=== PATIENT | female | born 1975 | race Caucasian/White ===

== ENCOUNTER 2017-03-10 17:24 | Emergency (ER) | payer MEDICAID, OTHER ==
[~2017-03-10] VITALS: Ht 152.4 cm; Wt 81.5 kg
[2017-03-10 17:52] VITALS: Ht 152.4 cm; Wt 81.5 kg
[2017-03-10] MEDS ORDERED: DICLOFENAC SODIUM 37.5 MG/ML VIAL IV STA (18:18)
[2017-03-10 19:20] LABS: ADD SCAN DIFF NO
[2017-03-10 19:21] LABS: BASOPHILS % 0.3 % (0.0-2.0); EOSINOPHILS # 0.2 10^3/ul (0.0-0.5); EOSINOPHILS % 2.5 % (0.0-7.0); HEMATOCRIT 39.8 % (37.0-47.0); LYMPHOCYTES # 2.6 10^3/ul (0.8-2.9); LYMPHOCYTES % 35.2 % (15.0-51.0); MEAN CORPUSCULAR HEMOGLOBIN 29.5 pg (29.0-33.0); MEAN CORPUSCULAR HGB CONC 32.7 g/dl (32.0-37.0); MEAN CORPUSCULAR VOLUME 90.5 fl (82.0-101.0); MEAN PLATELET VOLUME 9.7 fl (7.4-10.4); MONOCYTE # 0.6 10^3/ul (0.3-0.9); MONOCYTES % 8.8 % (0.0-11.0); NEUTROPHIL # 3.9 10^3/ul (1.6-7.5); NEUTROPHILS % 52.9 % (39.0-77.0); PLATELET COUNT 317 10^3/UL (140-415); RED CELL DISTRIBUTION WIDTH 12.7 % (11.5-14.5); WHITE BLOOD COUNT 7.3 10^3/ul (4.8-10.8)
[2017-03-10 19:33] LABS: ALBUMIN 4.4 g/dl (3.3-4.9); POTASSIUM 3.7 mmol/L (3.5-5.1)
[2017-03-10 19:36] LABS: ALBUMIN/GLOBULIN RATIO 1.41; BILIRUBIN,INDIRECT 0.2 mg/dl (0-1.1); BILIRUBIN,TOTAL 0.2 mg/dl (0.2-1.3); CALCIUM 8.8 mg/dl (8.4-10.2); CREATININE 0.55 mg/dl (0.44-1.00); TOTAL PROTEIN 7.5 g/dl (6.1-8.1)
--- NOTE | 2017-03-10 19:45 | RADRPT ---
PROCEDURE: XR Left Foot. CLINICAL INDICATION: Trauma. Pain. TECHNIQUE: AP, lateral and oblique views of the left foot was obtained. The images were reviewed on a PACS workstation. COMPARISON: None. FINDINGS: There are no fractures. Joint relationships are maintained. Bone mineralization is within normal l imits. Mall plantar calcaneal bone spur is present. Soft tissues are unremarkable. IMPRESSION: No acute abnormality. RPTAT: HMVK .Qamar Velez MD, MD Date Time Electronically viewed and signed by .Qamar Velez MD, on 03/10/2017 19:44 .K/
[2017-03-10] MEDS ORDERED: IBUP800T25 PO (20:17)
[2017-03-10] MEDS ORDERED: HYDR-902 PO (20:17)
[2017-03-10] MEDS ORDERED: PRED20TA PO (20:17)
--- NOTE | 2017-03-10 20:21 | ERD ---
ER Documentation Chief Complaint Date/Time DATE: 03/10/17 TIME: 20:18 Chief Complaint C/O GEN. BODY PAIN X8 DAYS, DENIES COUGH N/V OR FEVER HPI This a 41-year-old female complains of 8 days of myalgias. She is complaining of pain to her right and left arm her right and left leg as well as her low back. She says she feels very achy but she is not having any fevers no headaches shortness of breath no focal neurological complaints patient says she is not overactive nor does lots of lifting and straining at work. She says the symptoms are worse at night. No rash. She also complains that she stubbed her left toe 3 days ago. No swelling or bruising. No respiratory symptoms ROS All systems reviewed and are negative except as per history of present illness. Medications Home Meds Active Scripts Prednisone* (Prednisone*) 20 Mg Tab, 60 MG PO DAILY for 5 Days, TAB Prov:CLAUDETTE BOWERSTOLOS A. DO 03/10/17 Hydrocodone/Acetaminophen ([place] 10-325 Tablet) 1 Each Tablet, 1 TAB PO Q6H Y for PAIN, #20 TAB Prov:CLAUDETTE BOWERSTOLOS A. DO 03/10/17 Ibuprofen* (Motrin*) 800 Mg Tab, 800 MG PO Q6H Y for PAIN AND OR ELEVATED TEMP, #30 TAB Prov:ERIOSCLAUDETTESTOLOS A. DO 03/10/17 Allergies Allergies: Coded Allergies: No Known Drug Allergies (Verified Allergy, Mild, 10/29/14) PMhx/Soc History of Surgery: No Anesthesia Reaction: No Hx Neurological Disorder: No Hx Respiratory Disorders: No Hx Cardiac Disorders: No Hx Psychiatric Problems: No Hx Miscellaneous Medical Probl: No Hx Alcohol Use: No Hx Substance Use: No Hx Tobacco Use: No FmHx Family History: No coronary disease Physical Exam Vitals Vital Signs Date Time Temp Pulse Resp B/P Pulse Ox O2 Delivery O2 Flow Rate FiO2 03/10/17 17:52 97.0 83 20 129/60 98 Physical Exam Const: Well-developed, well-nourished Head: Atraumatic, normocephalic Eyes: Normal Conjunctiva, PERRLA, EOMI, normal sclera, no nystagmus ENT: Normal External Ears, Nose and Mouth, moist mucus membranes. Neck: Full range of motion. No meningismus, no lymphadenopathy. Resp: Clear to auscultation bilaterally, no wheezing, rhonchi, rales Cardio: Regular rate and rhythm, no murmurs, S1 S2 present Abd: Soft, non tender x 4, non distended. Normal bowel sounds, no guarding or rebound, no pulsitile abdominal masses or bruits Skin: No petechiae or rashes, no ecchymosis , no maculopapular rash Back: No midline or flank tenderness Ext: No cyanosis, or edema, FROM x 4, normal inspection, neurovascularly intact x 4, there is tenderness to the left fifth pinky toe with a bruising Neur: Awake and alert, STR 5/5 x 4, sensation intact x 4, no focal findings, cerebellum intact Psych: Normal Mood and Affect Result Diagram: 03/10/17189903/10/171899 Results 24 hrs Laboratory Tests Test 03/10/17 19:00 White Blood Count 7.310^3/ul Red Blood Count 4.4010^6/ul Hemoglobin 13.0g/dl Hematocrit 39.8% Mean Corpuscular Volume 90.5fl Mean Corpuscular Hemoglobin 29.5pg Mean Corpuscular Hemoglobin Concent 32.7g/dl Red Cell Distribution Width 12.7% Platelet Count 34673^3/UL Mean Platelet Volume 9.7fl Neutrophils % 52.9% Lymphocytes % 35.2% Monocytes % 8.8% Eosinophils % 2.5% Basophils % 0.3% Nucleated Red Blood Cells % 0.0/100WBC Neutrophils # 3.910^3/ul Lymphocytes # 2.610^3/ul Monocytes # 0.610^3/ul Eosinophils # 0.210^3/ul Basophils # 0.010^3/ul Nucleated Red Blood Cells # 0.010^3/ul Sodium Level 139mmol/L Potassium Level 3.7mmol/L Chloride Level 102mmol/L Carbon Dioxide Level 25mmol/L Anion Gap 16 Blood Urea Nitrogen 17mg/dl Creatinine 0.55mg/dl Glucose Level 95mg/dl Calcium Level 8.8mg/dl Total Bilirubin 0.2mg/dl Direct Bilirubin 0.00mg/dl Indirect Bilirubin 0.2mg/dl Aspartate Amino Transf (AST/SGOT) 27IU/L Alanine Aminotransferase (ALT/SGPT) 38IU/L Alkaline Phosphatase 68IU/L Total Protein 7.5g/dl Albumin 4.4g/dl Globulin 3.10g/dl Albumin/Globulin Ratio 1.41 Current Medications Medications (Trade) Dose Ordered Sig/Rachel Route PRN Reason Start Time Stop Time Status Last Admin Dose Admin Diclofenac Sodium (Dyloject) 37.5 mg ONCE STAT IV 03/10/17 18:18 03/10/17 18:19 DC 03/10/17 18:59 Procedures/MDM Blood work is unremarkable. X-ray of the foot is negative PROCEDURE: XR Left Foot. CLINICAL INDICATION: Trauma. Pain. TECHNIQUE: AP, lateral and oblique views of the left foot was obtained. The images were reviewed on a PACS workstation. COMPARISON: None. FINDINGS: There are no fractures. Joint relationships are maintained. Bone mineralization is within normal limits. Mall plantar calcaneal bone spur is present. Soft tissues are unremarkable. IMPRESSION: No acute abnormality. RPTAT: HMVK .Qamar Velez MD, MD Date Time Electronically viewed and signed by .Qamar Velez MD, on 03/10/2017 19:44 .K/ CC: OBDULIA BOWER DO Patient may have a viral illness or may have some type of autoimmune process going on. We will treat with some steroids and anti-inflammatories and see if she gets better. If not she needs a follow-up with her primary for extensive workup Departure Diagnosis: Primary Impression: Myalgia Additional Impression: Sprain of toe, fifth, left Encounter type: initial encounter Qualified Code: S93.505A - Sprain of toe, fifth, left, initial encounter Condition: Stable Patient Instructions: Myalgias, Sprain Toe OBDULIA BOWER DO Mar 10, 2017 20:21
[2017-03-10 20:40] VITALS: BP 120/72; PULSE 64; RESP 16; TEMP 98
== END 2017-03-10 20:40 | disposition home or self-care (01) ==
LOC: FTE 17:24
DX: S93.505A Unspecified sprain of left lesser toe(s), initial encounter (principal); X50.0XXA Overexertion from strenuous movement or load, initial encounter; Y92.89 Other specified places as the place of occurrence of the external cause
CPT/HCPCS: 73630; 80053; 85025; Z7610; 36415; 96374

== ENCOUNTER 2017-07-28 18:53 | Emergency (ER) | payer OTHER ==
[~2017-07-28] VITALS: Ht 152.4 cm; Wt 82.5 kg
[~2017-07-28 18:53] MED LIST: HYDR-902 PO; IBUP800T25 PO; PRED20TA PO
[2017-07-28 19:09] VITALS: Ht 152.4 cm; Wt 82.5 kg
--- NOTE | 2017-07-28 19:39 | ERD ---
ER Documentation Chief Complaint Date/Time DATE: 07/28/17 TIME: 19:38 Chief Complaint headache and lower back pain since yesterday. HPI 41-year-old female presents to emergency department for complaints of headache, bilateral flank pain or back pain dysuria hematuria that started yesterday. Patient complains of pain upon urination, back pain, sharp pain, 6/10 scale, burning urination, accompanied with headache, throbbing pain, 4/10 scale, denies any nausea vomiting. Patient denies any fever or chills. Patient denies any diarrhea. Patient denies any trauma in the back. ROS All systems reviewed and are negative except as per history of present illness. Medications Home Meds Active Scripts Prednisone* (Prednisone*) 20 Mg Tab, 60 MG PO DAILY for 5 Days, TAB Prov:LEKKOS,CLAUDETTESTOLOS A. DO 03/10/17 Hydrocodone/Acetaminophen ([place] 10-325 Tablet) 1 Each Tablet, 1 TAB PO Q6H Y for PAIN, #20 TAB Prov:LEKKOS,APOSTOLOS A. DO 03/10/17 Ibuprofen* (Motrin*) 800 Mg Tab, 800 MG PO Q6H Y for PAIN AND OR ELEVATED TEMP, #30 TAB Prov:LEKKOS,APOSTOLOS A. DO 03/10/17 Allergies Allergies: Coded Allergies: No Known Drug Allergies (Verified Allergy, Mild, 10/29/14) PMhx/Soc Medical and Surgical Hx: pt denies Medical Hx, pt denies Surgical Hx History of Surgery: No Anesthesia Reaction: No Hx Neurological Disorder: No Hx Respiratory Disorders: No Hx Cardiac Disorders: No Hx Psychiatric Problems: No Hx Miscellaneous Medical Probl: No Hx Alcohol Use: No Hx Substance Use: No Hx Tobacco Use: No Smoking Status: Never smoker FmHx Family History: No coronary disease, No diabetes, No other Physical Exam Vitals Vital Signs Date Time Temp Pulse Resp B/P Pulse Ox O2 Delivery O2 Flow Rate FiO2 07/28/17 19:09 98.1 91 20 118/57 97 Physical Exam GENERAL: The patient is well developed and appropriate for usual state of health, in no apparent distress. CHEST: Clear to auscultation bilaterally. There are no rales, wheezes or rhonchi. HEART: Regular rate and rhythm. No murmurs, clicks, rubs or gallops. No S3 or S4. ABDOMEN: Soft, nontender and nondistended. Good bowel sounds. No rebound or guarding. No gross peritonitis. No gross organomegaly or masses. No Knight sign or McBurney point tenderness. BACK: No midline or flank tenderness. EXTREMITIES: Equal pulses bilaterally. There is no peripheral clubbing, cyanosis or edema. No focal swelling or erythema. Full range of motion. Grossly neurovascularly intact. NEURO: Alert and oriented. Cranial nerves 2-12 intact. Motor strength in all 4 extremities with 5/5 strength. Sensation grossly intact. Normal speech and gait. SKIN: There is no apparent rash or petechia. The skin is warm and dry. HEMATOLOGIC AND LYMPHATIC: There is no evidence of excessive bruising or lymphedema. No gross cervical, axillary, or inguinal lymphadenopathy. Result Diagram: 07/28/17210607/28/172106 Results 24 hrs Laboratory Tests Test 07/28/17 20:00 07/28/17 21:07 Urine Color YELLOW Urine Clarity TURBID Urine pH 5.0 Urine Specific [place] 1.021 Urine Ketones NEGATIVEmg/dL Urine Nitrite NEGATIVEmg/dL Urine Bilirubin NEGATIVEmg/dL Urine Urobilinogen NEGATIVEmg/dL Urine Leukocyte Esterase NEGATIVELeu/ul Urine Microscopic RBC 3/HPF Urine Microscopic WBC 1/HPF Urine Squamous Epithelial Cells FEW/HPF Urine Uric Acid Crystals MODERATE/HPF Urine Hemoglobin NEGATIVEmg/dL Urine Glucose NEGATIVEmg/dL Urine Total Protein NEGATIVEmg/dl White Blood Count 7.010^3/ul Red Blood Count 4.2810^6/ul Hemoglobin 12.7g/dl Hematocrit 38.8% Mean Corpuscular Volume 90.7fl Mean Corpuscular Hemoglobin 29.7pg Mean Corpuscular Hemoglobin Concent 32.7g/dl Red Cell Distribution Width 12.5% Platelet Count 83473^3/UL Mean Platelet Volume 9.6fl Neutrophils % 51.0% Lymphocytes % 37.2% Monocytes % 9.2% Eosinophils % 2.0% Basophils % 0.3% Nucleated Red Blood Cells % 0.0/100WBC Neutrophils # (Manual) 3.610^3/ul Lymphocytes # 2.610^3/ul Monocytes # 0.710^3/ul Eosinophils # 0.110^3/ul Basophils # 0.010^3/ul Nucleated Red Blood Cells # 0.010^3/ul Sodium Level 138mmol/L Potassium Level 3.7mmol/L Chloride Level 106mmol/L Carbon Dioxide Level 25mmol/L Anion Gap 11 Blood Urea Nitrogen 15mg/dl Creatinine 0.65mg/dl Glucose Level 93mg/dl Calcium Level 9.2mg/dl Total Bilirubin 0.2mg/dl Direct Bilirubin 0.00mg/dl Indirect Bilirubin 0.2mg/dl Aspartate Amino Transf (AST/SGOT) 23IU/L Alanine Aminotransferase (ALT/SGPT) 35IU/L Alkaline Phosphatase 58IU/L Total Protein 6.7g/dl Albumin 3.9g/dl Globulin 2.80g/dl Albumin/Globulin Ratio 1.39 Current Medications Medications (Trade) Dose Ordered Sig/Rachel Route PRN Reason Start Time Stop Time Status Last Admin Dose Admin Acetaminophen/ Hydrocodone Bitart ([place] (5/325)) 1 tab ONCE ONCE PO 07/28/17 20:00 07/28/17 20:01 DC 07/28/17 19:53 Patient was given medication for pain here in emergency department, after treatment, patient verbalized feeling much better. Patient's pain is improved. PROCEDURE: Noncontrast CT Head. CLINICAL INDICATION: Headache TECHNIQUE: Noncontrast CT of the head was obtained. The administered radiation dose was CTDI vol = 43.95 mGy, DLP = 720.23 mGy-cm. One or more of the following dose reduction techniques were used: Automated exposure control, Adjustment of the mA and/or kV according to patient size, or Use of iterative reconstruction technique. COMPARISON: There are no similar studies submitted for comparison. FINDINGS: There is no acute intracranial hemorrhage, midline shift, or mass effect. The cerebral helm-white matter differentiation appears preserved. No abnormal extra- axial collection is identified. The cerebral sulci and ventricles are within normal limits in size and configuration for patient's age. The cerebral attenuation is within normal limits. The brainstem and cerebellum are grossly unremarkable. The basal cisterns are preserved. The visualized paranasal sinuses and mastoid air cells are clear. No acute fracture or suspicious osseous lesion is identified. IMPRESSION: No evidence of an acute intracranial process. Unremarkable noncontrast CT brain. RPTAT: AA Physician Tony Date Time Electronically viewed and signed by Physician Tony on 07/28/2017 21: 35 RC/ PROCEDURE: CT Lumbar Spine without contrast. CLINICAL INDICATION: Lumbar spine pain. TECHNIQUE: The study was performed on a multislice multidetector CT scanner. Spiral axial 1 mm images were obtained through the lumbar spine without intravenous contrast. 1 or more of the following dose reduction techniques were utilized: Automated exposure control, adjustment of the mA and/or kV according to patient's size, iterative reconstruction technique. Coronal and sagittal reformations were obtained. The images were reviewed on a PACS workstation. RADIATION DOSE: CTDIvol: 26.0 mGy DLP: 739.6 mGy-cm COMPARISON: No prior studies are available for comparison. FINDINGS: The alignment of the lumbar spine is normal. No vertebral body subluxation is seen. The intervertebral discs are normal in height. The vertebral body heights and marrow density are normal. The paraspinal soft tissues unremarkable. No significant paraspinal soft tissue swelling. L1-L2: The posterior margin of the disc is normal in appearance. No significant disc bulge or protrusion is evident. The central canal and neural foramina are adequately patent. L2-L3: The posterior margin of the disc is normal in appearance. No significant disc bulge or protrusion is evident. The central canal and neural foramina are adequately patent. L3-L4: The posterior margin of the disc is normal in appearance. No significant disc bulge or protrusion is evident. The central canal and neural foramina are adequately patent. L4-L5: There is a 1-2 mm annular disc bulge without significant indentation on the ventral thecal sac. The thecal sac and lateral recesses are patent. There is mild bilateral facet spondylosis. The neural foramina are patent. L5-S1: There is a 1-2 mm annular disc bulge without significant indentation on the ventral thecal sac. The thecal sac and lateral recesses are patent. There is mild bilateral facet spondylosis. The neural foramina are patent. IMPRESSION: 1. No acute abnormality of the lumbar spine. No evidence of fracture. 2. Minimal spondylosis at L4-5 and L5-S1 without significant narrowing of the lumbar thecal sac, lateral recesses or neural foramina. RPTAT: HGAS .Isaiah Khan MD, MD Date Time Electronically viewed and signed by .Isaiah Khan MD, MD on 07/28/2017 21: 47 .S/ Procedures/MDM Medical decision making: Patient's back pain nonspecific at this time, can be musculoskeletal pain, can be from the degenerative disc disease noted in the lumbar spine. No symptoms of any neurovascular compromise. No symptoms of pyelonephritis. Patient does complain of some dysuria but there is no urinary tract infection, patient will still be treated early infection. blood work does not show any leukocytosis, no bandemia, low suspicion for any sepsis at this time. Patient headache nonspecific at this time, possible migraine headache, CT scan of the brain does not show any neurologic emergencies at this time. Neurologic exam is normal. Patient was advised to follow-up with primary care doctor in 1-2 days for reevaluation of symptoms, see neurologist specialist as necessary for headache. Patient was advised to return to emergency department for any symptoms. Rx: [place], Flexeril, Keflex, Fioricet, Disposition:. Stable Departure Diagnosis: Primary Impression: Back pain Back pain location: low back pain Chronicity: acute Back pain laterality: bilateral Sciatica presence: without sciatica Qualified Code: M54.5 - Acute bilateral low back pain without sciatica Additional Impressions: Headache Headache type: unspecified Headache chronicity pattern: acute headache Intractability: not intractable Qualified Code: R51 - Acute nonintractable headache, unspecified headache type Dysuria Condition: Stable Patient Instructions: Back Pain (Acute Or Chronic), Dysuria, Self-Care for Headaches JOLLY ALVES NP Jul 28, 2017 19:39
[2017-07-28] MEDS ORDERED: HYDROCODONE/APAP (5/325) TAB PO ONE (20:00)
[2017-07-28 20:24] LABS: ADD UMIC YES; UR ASCORBIC ACID 20 mg/dL (NEGATIVE); UR BILIRUBIN (Dip) NEGATIVE (NEGATIVE); UR BLOOD (Dip) NEGATIVE (NEGATIVE); UR CLARITY TURBID (CLEAR); UR COLOR YELLOW (YELLOW); UR GLUCOSE (Dip) NEGATIVE (NEGATIVE); UR KETONES (Dip) NEGATIVE (NEGATIVE); UR LEUKOCYTE ESTERASE (Dip) NEGATIVE Leu/ul (NEGATIVE); UR NITRITE (Dip) NEGATIVE (NEGATIVE); UR RBC 3 /HPF (0-5); UR SPECIFIC GRAVITY (Dip) 1.021 (1.003-1.030); UR SQUAMOUS EPITHELIAL CELL FEW /HPF (FEW); UR TOTAL PROTEIN (Dip) NEGATIVE (NEGATIVE); UR URIC ACID CRYSTAL MODERATE /HPF (NONE SEEN); UR UROBILINOGEN (Dip) NEGATIVE (NEGATIVE)
--- NOTE | 2017-07-28 21:36 | RADRPT ---
PROCEDURE: Noncontrast CT Head. CLINICAL INDICATION: Headache TECHNIQUE: Noncontrast CT of the head was obtained. The administered radiation dose was CTDI vol = 43.95 mGy, DLP = 720.23 mGy-cm. One or more of the following dose reduction techniques were used: Au tomated exposure control, Adjustment of the mA and/or kV according to patient size, or Use of iterat kolby reconstruction technique. COMPARISON: There are no similar studies submitted for comparison. FINDINGS: There is no acute intracranial hemorrhage, midline shift, or mass effect. The cerebral helm-white ma tter differentiation appears preserved. No abnormal extra-axial collection is identified. The cerebral sulci and ventricles are within normal limits in size and configuration for patient's a ge. The cerebral attenuation is within normal limits. The brainstem and cerebellum are grossly unremarkable. The basal cisterns are preserved. The visualized paranasal sinuses and mastoid air cells are clear. No acute fracture or suspicious osseous lesion is identified. IMPRESSION: No evidence of an acute intracranial process. Unremarkable noncontrast CT brain. RPTAT: AA Physician Tony Date Time Electronically viewed and signed by Physician Tony on 07/28/2017 21:35 RC/
[2017-07-28 21:38] LABS: BASOPHILS % 0.3 % (0.0-2.0); EOSINOPHILS # 0.1 10^3/ul (0.0-0.5); HEMATOCRIT 38.8 % (37.0-47.0); HEMOGLOBIN 12.7 g/dl (12.0-16.0); LYMPHOCYTES # 2.6 10^3/ul (0.8-2.9); LYMPHOCYTES % 37.2 % (15.0-51.0); MEAN CORPUSCULAR HEMOGLOBIN 29.7 pg (29.0-33.0); MEAN CORPUSCULAR HGB CONC 32.7 g/dl (32.0-37.0); MEAN CORPUSCULAR VOLUME 90.7 fl (82.0-101.0); MEAN PLATELET VOLUME 9.6 fl (7.4-10.4); MONOCYTE # 0.7 10^3/ul (0.3-0.9); MONOCYTES % 9.2 % (0.0-11.0); PLATELET COUNT 293 10^3/UL (140-415); RED BLOOD COUNT 4.28 10^6/ul (4.20-5.40); RED CELL DISTRIBUTION WIDTH 12.5 % (11.5-14.5)
--- NOTE | 2017-07-28 21:48 | RADRPT ---
PROCEDURE: CT Lumbar Spine without contrast. CLINICAL INDICATION: Lumbar spine pain. TECHNIQUE: The study was performed on a multislice multidetector CT scanner. Spiral axial 1 mm im ages were obtained through the lumbar spine without intravenous contrast. 1 or more of the following dose reduction techniques were utilized: Automated exposure control, adjustment of the mA and/or k V according to patient's size, iterative reconstruction technique. Coronal and sagittal reformation s were obtained. The images were reviewed on a PACS workstation. RADIATION DOSE: CTDIvol: 26.0 mGyDLP: 739.6 mGy-cm COMPARISON: No prior studies are available for comparison. FINDINGS: The alignment of the lumbar spine is normal. No vertebral body subluxation is seen. The interverte bral discs are normal in height. The vertebral body heights and marrow density are normal. The par aspinal soft tissues unremarkable. No significant paraspinal soft tissue swelling. L1-L2: The posterior margin of the disc is normal in appearance. No significant disc bulge or prot rusion is evident. The central canal and neural foramina are adequately patent. L2-L3: The posterior margin of the disc is normal in appearance. No significant disc bulge or prot rusion is evident. The central canal and neural foramina are adequately patent. L3-L4: The posterior margin of the disc is normal in appearance. No significant disc bulge or prot rusion is evident. The central canal and neural foramina are adequately patent. L4-L5: There is a 1-2 mm annular disc bulge without significant indentation on the ventral thecal s ac. The thecal sac and lateral recesses are patent. There is mild bilateral facet spondylosis. Th e neural foramina are patent. L5-S1: There is a 1-2 mm annular disc bulge without significant indentation on the ventral thecal s ac. The thecal sac and lateral recesses are patent. There is mild bilateral facet spondylosis. Th e neural foramina are patent. IMPRESSION: 1. No acute abnormality of the lumbar spine. No evidence of fracture. 2. Minimal spondylosis at L4-5 and L5-S1 without significant narrowing of the lumbar thecal sac, la teral recesses or neural foramina. RPTAT: HGAS .Isaiah Khan MD, MD Date Time Electronically viewed and signed by .Isaiah Khan MD, on 07/28/2017 21:47 .S/
[2017-07-28 22:01] LABS: ALBUMIN 3.9 g/dl (3.3-4.9); ALBUMIN/GLOBULIN RATIO 1.39; BILIRUBIN,INDIRECT 0.2 mg/dl (0-1.1); BILIRUBIN,TOTAL 0.2 mg/dl (0.2-1.3); CALCIUM 9.2 mg/dl (8.4-10.2); CREATININE 0.65 mg/dl (0.44-1.00); POTASSIUM 3.7 mmol/L (3.5-5.1); TOTAL PROTEIN 6.7 g/dl (6.1-8.1)
[2017-07-28] MEDS ORDERED: CEPH-443 PO (22:28)
[2017-07-28] MEDS ORDERED: HYDR-906 PO (22:28)
[2017-07-28] MEDS ORDERED: PHEN-538 PO (22:28)
[2017-07-28] MEDS ORDERED: CYCL-319 PO (22:28)
== END 2017-07-28 22:41 | disposition home or self-care (01) ==
LOC: FTE 18:53
DX: M54.5 Low back pain (principal); R30.0 Dysuria
CPT/HCPCS: 70450; 72131; 80053; 81001; 85025; Z7502; Z7610

== ENCOUNTER 2017-09-06 13:41 | Emergency (ER) | payer OTHER ==
[~2017-09-06] VITALS: Ht 162.6 cm; Wt 78.0 kg
[~2017-09-06 13:41] MED LIST changes: +CEPH-443 PO; +CYCL-319 PO; +HYDR-906 PO; +PHEN-538 PO
[2017-09-06 13:51] VITALS: Ht 162.6 cm; Wt 78.0 kg
[2017-09-06] MEDS ORDERED: HYDROmorphONE 0.5 MG/0.5 ML SYG IV STA (14:13)
[2017-09-06] MEDS ORDERED: ONDANSETRON 4 MG INJ IV STA (14:13)
[2017-09-06] MEDS ORDERED: SOD CHLORIDE 0.9% 1,000 ML IV STA (14:13)
[2017-09-06 14:23] LABS: BASOPHILS % 0.4 % (0.0-2.0); EOSINOPHILS # 0.2 10^3/ul (0.0-0.5); EOSINOPHILS % 1.8 % (0.0-7.0); HEMATOCRIT 41.4 % (37.0-47.0); HEMOGLOBIN 14.1 g/dl (12.0-16.0); LYMPHOCYTES # 2.7 10^3/ul (0.8-2.9); MEAN CORPUSCULAR HEMOGLOBIN 30.1 pg (29.0-33.0); MEAN CORPUSCULAR HGB CONC 34.1 g/dl (32.0-37.0); MEAN CORPUSCULAR VOLUME 88.5 fl (82.0-101.0); MEAN PLATELET VOLUME 9.6 fl (7.4-10.4); MONOCYTE # 0.5 10^3/ul (0.3-0.9); NEUTROPHIL # 5.5 10^3/ul (1.6-7.5); NEUTROPHILS % 61.6 % (39.0-77.0); PLATELET COUNT 320 10^3/UL (140-415); RED BLOOD COUNT 4.68 10^6/ul (4.20-5.40); WHITE BLOOD COUNT 8.9 10^3/ul (4.8-10.8)
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
[2017-09-06] MEDS ORDERED: IODIXANOL LOCM 100 ML BTL ONE (14:34)
[2017-09-06] MEDS ORDERED: SOD CHLORIDE 0.9% 100 ML ONE (14:34)
[2017-09-06 14:45] LABS: ALBUMIN 4.2 g/dl (3.3-4.9); ALBUMIN/GLOBULIN RATIO 1.23; BILIRUBIN,INDIRECT 0.2 mg/dl (0-1.1); BILIRUBIN,TOTAL 0.2 mg/dl (0.2-1.3); CALCIUM 9.6 mg/dl (8.4-10.2); CREATININE 0.69 mg/dl (0.44-1.00); POTASSIUM 3.8 mmol/L (3.5-5.1); TOTAL PROTEIN 7.6 g/dl (6.1-8.1)
--- NOTE | 2017-09-06 14:46 | RADRPT ---
PROCEDURE: XR Chest. CLINICAL INDICATION: Abdominal pain. TECHNIQUE: Single frontal view. COMPARISON: None. FINDINGS: The lungs are clear. The heart size is normal. There is no pleural effusion. There is no pneumothorax. IMPRESSION: 1. Normal chest radiograph. RPTAT: QQ .Robert Carrillo MD, Date Time Electronically viewed and signed by .Robert Carrillo MD, on 09/06/2017 14:45 .R/
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
[2017-09-06] MEDS ORDERED: DICY10CA60 PO (15:25)
[2017-09-06] MEDS ORDERED: ONDA4TAB14 PO (15:25)
[2017-09-06 15:26] VITALS: TEMP 98.4
[2017-09-06 16:16] VITALS: BP 118/73; PULSE 88; RESP 18
== END 2017-09-06 16:17 | disposition home or self-care (01) ==
LOC: E/R 13:41
DX: R10.84 Generalized abdominal pain (principal)
CPT/HCPCS: 36415; 71010; 74177; 80053; 83690; 84703; 85025; 93005; 96374; 96375; J2405; J7030; Q9967; Z7502; Z7610

== ENCOUNTER 2018-02-14 19:10 | Emergency (ER) | END 2018-02-14 21:50 | disposition home or self-care (01) ==

== ENCOUNTER 2018-04-07 16:31 | Emergency (ER) | END 2018-04-07 17:38 | disposition home or self-care (01) ==

== ENCOUNTER 2018-07-03 22:00 | Emergency (ER) | END 2018-07-03 23:03 | disposition home or self-care (01) ==

== ENCOUNTER 2018-07-12 11:36 | Emergency (ER) | END 2018-07-12 12:45 | disposition home or self-care (01) ==

== ENCOUNTER → 2018-09-23 | Emergency (ER) | END | disposition home or self-care (01) ==

== ENCOUNTER 2019-02-02 21:11 | Emergency (ER) | payer SELFPAY ==
[~2019-02-02] VITALS: Ht 152.4 cm; Wt 73.1 kg
[~2019-02-02 21:11] MED LIST changes: +ACET325T33 PO; +ACET500C5 PO; +AMOX1TAB10 PO; +AMOX1TAB9 PO; +BENZ-6 PO; +CETI1TAB6 PO; -CYCL-319 PO; +CYCL10TA7 PO; +DICY10CA40 PO; +FAMO-96 PO; +FLUT9.9S NASAL; +HYDR-3980 PO; +HYDR-4011 PO; -HYDR-902 PO; -HYDR-906 PO; +IBUP-1542 PO; -IBUP800T25 PO; +IBUP800T48 PO; +OFLO5DRO7 BOTH EARS; +ONDA4TAB14 PO
[2019-02-02 21:33] VITALS: BP 103/59; PULSE 92; RESP 18; Ht 152.4 cm; Wt 73.1 kg
== END 2019-02-02 23:10 | disposition left against medical advice (07) ==
LOC: FTE 21:11
DX: Z53.21 Procedure and treatment not carried out due to patient leaving prior to being seen by health care provider (principal)

== ENCOUNTER 2019-05-11 16:31 | Emergency (ER) | payer OTHER ==
[~2019-05-11] VITALS: Ht 160 cm; Wt 75.5 kg
[2019-05-11 16:33] VITALS: Ht 160 cm; Wt 75.5 kg
[2019-05-11] MEDS ORDERED: KETOROLAC 30 MG INJ IM STA (20:40)
[2019-05-11] MEDS ORDERED: NAPR-985 PO (20:46)
--- NOTE | 2019-05-11 20:49 | ERD ---
ER Documentation Chief Complaint Chief Complaint headache x 2 days HPI 43-year-old female with no reported past medical surgical history presents with complaint of headache over the past 2 days. Patient has headache as a global headache that is intermittent. She denies any prior history of headaches or migraines. Intensity of headache has stayed about the same per patient. Took Tylenol which only helped with headaches somewhat. She otherwise denies dizziness, blurry vision, ear or sinus pain, chest pain, shortness of breath, dyspnea, nausea, vomiting, or recent fall trauma, upper extremity weakness or numbness, slurred speech. Time of examination patient toxic appearing answering all questions appropriately. ROS All systems reviewed and are negative except as per history of present illness. Medications Home Meds Active Scripts Tramadol HCl (Tramadol HCl) 50 Mg Tablet, 50 MG PO Q6 PRN for PAIN, #20 TAB Prov:YUMIKO ANG PA-C 05/11/19 Naproxen* (Naprosyn*) 500 Mg Tablet, 500 MG PO BID PRN for PAIN AND/OR INFLAMMATION, #30 TAB Prov:YUMIKO ANG PA-C 05/11/19 Famotidine* (Pepcid*) 20 Mg Tablet, 20 MG PO BID for 14 Days, TAB Prov:MARIO DAWSON MD 09/23/18 Cetirizine/Pseudoephedrine (Zyrtec-D) 5-120 Mg Tab.er.12h, 1 TAB PO Q12, #20 TAB Prov:LISSY LIN PA-C 07/12/18 Fluticasone Propionate (Flonase Allergy Relief) 9.9 Ml [place].susp, 1 SPRAY NASAL BID for 28 Days, #1 BOTTLE TO EACH NOSTRIL Prov:LISSY LIN PA-C 07/12/18 Amoxicillin/Potassium Clav (Amox-Clav 500-125 mg Tablet) 500-125 mg Tab, 1 TAB PO BID for 12 Days, TAB Prov:LISSY LIN PA-C 07/12/18 Acetaminophen* (Tylenol*) 325 Mg Tablet, 2 TAB PO Q6 PRN for PAIN AND OR ELEVATED TEMP, #30 TAB Prov:LISSY LIN PA-C 07/12/18 Ibuprofen* (Motrin*) 600 Mg Tab, 600 MG PO Q6, #30 TAB Prov:STEPHEN DOBSONC 07/03/18 Acetaminophen* (Tylophen*) 500 Mg Capsule, 1 CAP PO Q6H PRN for PAIN AND OR ELEVATED TEMP, #20 CAP Prov:STEPHEN DOBSONC 07/03/18 Amoxicillin/Potassium Clav (Amox-Clav 875-125 mg Tablet) 875-125 mg Tab, 1 TAB PO BID for 7 Days, #14 TAB Prov:STEPHEN DOBSONC 07/03/18 Ofloxacin Otic (Ofloxacin Otic) 5 Ml Drops, 5 DROP BOTH EARS DAILY for 7 Days, #1 BOTTLE Prov:YANNA GALVAN PA-C 04/07/18 Acetaminophen* (Tylophen*) 500 Mg Capsule, 1 CAP PO Q6H PRN for PAIN AND OR ELEVATED TEMP, #20 CAP Prov:YANNA GALVAN-C 04/07/18 Amoxicillin/Potassium Clav (Amox-Clav 875-125 mg Tablet) 875-125 mg Tab, 1 TAB PO BID for 7 Days, #14 TAB Prov:YANNA GALVANC 04/07/18 Benzonatate* (Tessalon Perle*) 100 Mg Capsule, 100 MG PO Q8H PRN for COUGH, #20 CAP Prov:YANNA GALVAN-C 04/07/18 Ibuprofen* (Motrin*) 800 Mg Tab, 800 MG PO Q6H PRN for PAIN AND OR ELEVATED TEMP, #30 TAB Prov:OBDULIA BOWER DO 02/14/18 Prednisone* (Prednisone*) 20 Mg Tab, 60 MG PO DAILY for 5 Days, TAB Prov:OBDULIA BOWER DO 02/14/18 Hydrocodone/Acetaminophen ([place] 10-325 Tablet) 1 Each Tablet, 1 TAB PO Q6H PRN for PAIN, #20 TAB Prov:OBDULIA BOWER DO 02/14/18 Ondansetron (Ondansetron Odt) 4 Mg Tab.rapdis, 4 MG PO Q6H PRN for NAUSEA AND/OR VOMITING, #30 TAB Prov:GIANCARLO MORALES MD 09/06/17 Dicyclomine HCl (Dicyclomine HCl) 10 Mg Capsule, 10 MG PO QID PRN for abdominal cramping, #20 CAP Prov:GIANCARLO MORALES MD 09/06/17 Phenazopyridine Hcl* (Pyridium*) 200 Mg Tab, 200 MG PO TID PRN for URINARY PAIN, #6 TAB Prov:JOLLY ALVES NP 07/28/17 Cephalexin* (Keflex*) 500 Mg Capsule, 500 MG PO QID for 10 Days, CAP Prov:JOLLY ALVES NP 07/28/17 Cyclobenzaprine Hcl* (Cyclobenzaprine Hcl*) 10 Mg Tablet, 10 MG PO TID, #15 TAB Prov:JOLLY ALVES SENIOR VISUAL DESIGNER 07/28/17 Hydrocodone/Acetaminophen ([place] 5-325 Tablet) 1 Each Tablet, 1 TAB PO Q6H PRN for SEVERE PAIN LEVEL 7-10, #20 TAB Prov:JOLLY ALVES NP 07/28/17 Prednisone* (Prednisone*) 20 Mg Tab, 60 MG PO DAILY for 5 Days, TAB Prov:OBDULIA BOWER DO 03/10/17 Hydrocodone/Acetaminophen ([place] 10-325 Tablet) 1 Each Tablet, 1 TAB PO Q6H PRN for PAIN, #20 TAB Prov:ERIOSCLAUDETTESTOLOS AAguila DO 03/10/17 Ibuprofen* (Motrin*) 800 Mg Tab, 800 MG PO Q6H PRN for PAIN AND OR ELEVATED TEMP, #30 TAB Prov:CLAUDETTE BOWERSTOLOS AAguila DO 03/10/17 Allergies Allergies: Coded Allergies: No Known Allergy (Unverified , 02/14/18) PMhx/Soc Medical and Surgical Hx: pt denies Medical Hx, pt denies Surgical Hx History of Surgery: No Anesthesia Reaction: No Hx Neurological Disorder: No Hx Respiratory Disorders: No Hx Cardiac Disorders: No Hx Psychiatric Problems: No Hx Miscellaneous Medical Probl: No Hx Alcohol Use: No Hx Substance Use: No Hx Tobacco Use: No Smoking Status: Never smoker FmHx Family History: No diabetes, No coronary disease, No other Physical Exam Vitals Vital Signs Date Temp Pulse Resp B/P (MAP) Pulse Ox O2 O2 Flow FiO2 Time Delivery Rate 05/11/19 70 18 118/55 100 Room Air 21:25 (76) 05/11/19 98.1 78 18 126/61 97 16:33 (82) Physical Exam Const: No acute distress Head: Atraumatic Eyes: Normal Conjunctiva ENT: Normal External Ears, Nose and Mouth. No tenderness on palpation of sinuses Neck: Full range of motion. No meningismus. Resp: Clear to auscultation bilaterally Cardio: Regular rate and rhythm, no murmurs Abd: Soft, non tender, non distended. Normal bowel sounds Skin: No petechiae or rashes Back: No midline or flank tenderness Ext: No cyanosis, or edema, lateral upper extremities 5 out of 5 strength throughout, SI LT throughout upper extremity bilaterally Neur: Awake and alert Psych: Normal Mood and Affect Results 24 hrs Current Medications Medications Dose Sig/Rachel Start Time Status Last (Trade) Ordered Route PRN Stop Time Admin Dose Reason Admin 10 mg ONCE ONCE 05/11/19 DC 05/11/19 Dexamethasone IM 21:00 20:50 (Decadron) 05/11/19 21:01 Ketorolac 30 mg ONCE STAT 05/11/19 DC 05/11/19 Tromethamine IM 20:40 20:50 (Toradol) 05/11/19 20:41 Procedures/MDM This patient presents with a headache most consistent with nonemergent primary type headache. Differential diagnosis includes migraine versus tension type headache. No headache red flags. Neurologic exam without evidence of meningismus, focal neurologic findings. Presentation not consistent with acute intracranial bleed to include SAH (lack of risk factors, headache history). Presentation not consistent with acute LEAD ENTER[employer]ISE ARCHITECT infection to include meningitis or brain abscess, Temporal arteritis unlikely, as is acute angle closure glaucoma given history and physical findings. Presentation not consistent with other acute, emergent causes of headache at this time. Plan to treat symptomatically with pain medication. No indication for imaging/LP at this time. ED course/Plan: Toradol, single dose of Decadron Reassessment: DISPOSITION PLAN: We discussed follow up with the patient's primary care doctor within 24 to 48 hours. Patient counseled regarding my diagnostic impression and care plan. Prior to discharge all questions answered. Pt agrees with treatment plan and understands strict return precautions. Precautionary instructions provided including instructions to return to the ER if not improving or for any worsening or changing symptoms or concerns. Disclaimer: Inadvertent spelling and grammatical errors are likely due to EHR/dictation software use and do not reflect on the overall quality of patient care. Also, please note that the electronic time recorded on this note does not necessarily reflect the actual time of the patient encounter. Departure Diagnosis: Primary Impression: Headache Condition: Stable Patient Instructions: Self-Care for Headaches Referrals: [facility] LAINE[facility] CORRAL (PCP) Additional Instructions: Call your primary care doctor TOMORROW for an appointment during the next 2-3 days.See the doctor sooner or return here if your condition worsens before your appointment time. YUMIKO ANG PA-C May 11, 2019 20:49
[2019-05-11] MEDS ORDERED: DEXAMETHASONE 10 MG/ML 1 ML INJ IM ONE (21:00)
[2019-05-11] MEDS ORDERED: TRAM50TA2 PO (21:10)
[2019-05-11 21:25] VITALS: BP 118/55; PULSE 70; RESP 18
== END 2019-05-11 21:32 | disposition home or self-care (01) ==
LOC: FTE 16:31
DX: R51 Headache (principal)
CPT/HCPCS: J1100; J1885; 96372